=== PATIENT | female | born 1940 | race Caucasian/White ===

== ENCOUNTER → 2017-04-12 | Outpatient (CLI) | payer OTHER | LOC: M.WC 01:42 | DX: I87.312 Chronic venous hypertension (idiopathic) with ulcer of left lower extremity (principal); L97.821 Non-pressure chronic ulcer of other part of left lower leg limited to breakdown of skin; I73.89 Other specified peripheral vascular diseases; I48.91 Unspecified atrial fibrillation; M81.0 Age-related osteoporosis without current pathological fracture; Z87.891 Personal history of nicotine dependence ==

== ENCOUNTER → 2017-05-03 | Outpatient (CLI) | payer OTHER, SELFPAY | LOC: M.WC 01:38 | DX: I87.312 Chronic venous hypertension (idiopathic) with ulcer of left lower extremity (principal); L97.821 Non-pressure chronic ulcer of other part of left lower leg limited to breakdown of skin; I73.89 Other specified peripheral vascular diseases; I48.91 Unspecified atrial fibrillation; M81.0 Age-related osteoporosis without current pathological fracture; Z87.891 Personal history of nicotine dependence ==

== ENCOUNTER → 2017-05-10 | Outpatient (CLI) | payer OTHER, SELFPAY | LOC: M.WC 01:50 | DX: I87.312 Chronic venous hypertension (idiopathic) with ulcer of left lower extremity (principal); L97.821 Non-pressure chronic ulcer of other part of left lower leg limited to breakdown of skin; I73.89 Other specified peripheral vascular diseases; I48.91 Unspecified atrial fibrillation; M81.0 Age-related osteoporosis without current pathological fracture; Z87.891 Personal history of nicotine dependence ==

== ENCOUNTER → 2017-06-07 | Outpatient (CLI) | payer OTHER, SELFPAY | LOC: M.WC 05-31 00:55 | DX: L97.821 Non-pressure chronic ulcer of other part of left lower leg limited to breakdown of skin (principal); I87.312 Chronic venous hypertension (idiopathic) with ulcer of left lower extremity; L97.321 Non-pressure chronic ulcer of left ankle limited to breakdown of skin; I73.89 Other specified peripheral vascular diseases; I48.91 Unspecified atrial fibrillation; M81.0 Age-related osteoporosis without current pathological fracture; Z87.891 Personal history of nicotine dependence ==

== ENCOUNTER → 2017-06-14 | Outpatient (CLI) | payer OTHER, SELFPAY | LOC: M.WC 01:34 | DX: L97.821 Non-pressure chronic ulcer of other part of left lower leg limited to breakdown of skin (principal); L97.321 Non-pressure chronic ulcer of left ankle limited to breakdown of skin; I87.312 Chronic venous hypertension (idiopathic) with ulcer of left lower extremity; I73.89 Other specified peripheral vascular diseases; I48.91 Unspecified atrial fibrillation; M81.0 Age-related osteoporosis without current pathological fracture; Z87.891 Personal history of nicotine dependence ==

== ENCOUNTER → 2017-06-28 | Outpatient (CLI) | payer OTHER, SELFPAY | LOC: M.WC 06-21 01:50 | DX: I87.312 Chronic venous hypertension (idiopathic) with ulcer of left lower extremity (principal); L97.321 Non-pressure chronic ulcer of left ankle limited to breakdown of skin; I73.9 Peripheral vascular disease, unspecified; I48.91 Unspecified atrial fibrillation; Z87.891 Personal history of nicotine dependence ==

== ENCOUNTER → 2017-07-05 | Outpatient (CLI) | payer OTHER, SELFPAY | LOC: M.WC 01:30 | DX: I87.312 Chronic venous hypertension (idiopathic) with ulcer of left lower extremity (principal); L97.321 Non-pressure chronic ulcer of left ankle limited to breakdown of skin; I73.89 Other specified peripheral vascular diseases; I48.91 Unspecified atrial fibrillation; Z87.891 Personal history of nicotine dependence ==

== ENCOUNTER → 2017-07-12 | Outpatient (CLI) | payer OTHER, SELFPAY | LOC: M.WC 02:10 | DX: I87.312 Chronic venous hypertension (idiopathic) with ulcer of left lower extremity (principal); L97.321 Non-pressure chronic ulcer of left ankle limited to breakdown of skin; I73.9 Peripheral vascular disease, unspecified; I48.91 Unspecified atrial fibrillation; Z87.891 Personal history of nicotine dependence ==

== ENCOUNTER → 2017-07-26 | Outpatient (CLI) | payer OTHER, SELFPAY | LOC: M.WC 07-19 10:00 | DX: I87.312 Chronic venous hypertension (idiopathic) with ulcer of left lower extremity (principal); L97.321 Non-pressure chronic ulcer of left ankle limited to breakdown of skin; I73.9 Peripheral vascular disease, unspecified; I48.91 Unspecified atrial fibrillation; Z87.891 Personal history of nicotine dependence ==

== ENCOUNTER → 2017-08-09 | Outpatient (CLI) | payer OTHER, SELFPAY | LOC: M.WC 01:42 | DX: I87.312 Chronic venous hypertension (idiopathic) with ulcer of left lower extremity (principal); L97.821 Non-pressure chronic ulcer of other part of left lower leg limited to breakdown of skin; L97.321 Non-pressure chronic ulcer of left ankle limited to breakdown of skin; I48.91 Unspecified atrial fibrillation; I73.89 Other specified peripheral vascular diseases; M81.0 Age-related osteoporosis without current pathological fracture; Z87.891 Personal history of nicotine dependence ==

== ENCOUNTER → 2017-08-30 | Outpatient (CLI) | payer OTHER, SELFPAY | LOC: M.WC 01:53 | DX: I87.312 Chronic venous hypertension (idiopathic) with ulcer of left lower extremity (principal); L97.822 Non-pressure chronic ulcer of other part of left lower leg with fat layer exposed; L97.322 Non-pressure chronic ulcer of left ankle with fat layer exposed; I73.89 Other specified peripheral vascular diseases; I48.91 Unspecified atrial fibrillation; M81.0 Age-related osteoporosis without current pathological fracture; Z87.891 Personal history of nicotine dependence ==

== ENCOUNTER → 2017-09-20 | Outpatient (CLI) | payer OTHER, SELFPAY | LOC: M.WC 02:32 | DX: I87.312 Chronic venous hypertension (idiopathic) with ulcer of left lower extremity (principal); L97.822 Non-pressure chronic ulcer of other part of left lower leg with fat layer exposed; L97.321 Non-pressure chronic ulcer of left ankle limited to breakdown of skin; I73.89 Other specified peripheral vascular diseases; I48.91 Unspecified atrial fibrillation; M81.0 Age-related osteoporosis without current pathological fracture; Z87.891 Personal history of nicotine dependence ==

== ENCOUNTER → 2017-10-11 | Outpatient (CLI) | payer OTHER, SELFPAY | LOC: M.WC 03:48 | DX: I87.313 Chronic venous hypertension (idiopathic) with ulcer of bilateral lower extremity (principal); L97.821 Non-pressure chronic ulcer of other part of left lower leg limited to breakdown of skin; L97.311 Non-pressure chronic ulcer of right ankle limited to breakdown of skin; I73.89 Other specified peripheral vascular diseases; L03.116 Cellulitis of left lower limb; I48.91 Unspecified atrial fibrillation; M81.0 Age-related osteoporosis without current pathological fracture; Z87.891 Personal history of nicotine dependence ==

== ENCOUNTER → 2017-11-01 | Outpatient (CLI) | payer OTHER, SELFPAY | LOC: M.WC 03:52 | DX: I87.312 Chronic venous hypertension (idiopathic) with ulcer of left lower extremity (principal); L97.822 Non-pressure chronic ulcer of other part of left lower leg with fat layer exposed; L97.321 Non-pressure chronic ulcer of left ankle limited to breakdown of skin; I73.89 Other specified peripheral vascular diseases; L84 Corns and callosities; I48.91 Unspecified atrial fibrillation; M81.0 Age-related osteoporosis without current pathological fracture; Z87.891 Personal history of nicotine dependence ==

== ENCOUNTER → 2017-11-29 | Outpatient (CLI) | payer OTHER, SELFPAY | LOC: M.WC 11-22 01:22 | DX: I87.313 Chronic venous hypertension (idiopathic) with ulcer of bilateral lower extremity (principal); L97.821 Non-pressure chronic ulcer of other part of left lower leg limited to breakdown of skin; L97.321 Non-pressure chronic ulcer of left ankle limited to breakdown of skin; L97.311 Non-pressure chronic ulcer of right ankle limited to breakdown of skin; L03.116 Cellulitis of left lower limb; I73.89 Other specified peripheral vascular diseases; I48.91 Unspecified atrial fibrillation; M81.0 Age-related osteoporosis without current pathological fracture; Z87.891 Personal history of nicotine dependence ==

== ENCOUNTER → 2017-12-13 | Outpatient (CLI) | payer OTHER, SELFPAY | LOC: M.WC 02:02 | DX: I87.312 Chronic venous hypertension (idiopathic) with ulcer of left lower extremity (principal); L97.321 Non-pressure chronic ulcer of left ankle limited to breakdown of skin; I87.311 Chronic venous hypertension (idiopathic) with ulcer of right lower extremity; L97.311 Non-pressure chronic ulcer of right ankle limited to breakdown of skin; L97.822 Non-pressure chronic ulcer of other part of left lower leg with fat layer exposed; I73.89 Other specified peripheral vascular diseases; I48.91 Unspecified atrial fibrillation; M81.0 Age-related osteoporosis without current pathological fracture; Z87.891 Personal history of nicotine dependence ==

== ENCOUNTER → 2017-12-27 | Outpatient (CLI) | payer OTHER, SELFPAY | LOC: M.WC 02:55 | DX: I87.313 Chronic venous hypertension (idiopathic) with ulcer of bilateral lower extremity (principal); L97.322 Non-pressure chronic ulcer of left ankle with fat layer exposed; L97.311 Non-pressure chronic ulcer of right ankle limited to breakdown of skin; L97.821 Non-pressure chronic ulcer of other part of left lower leg limited to breakdown of skin; I48.91 Unspecified atrial fibrillation; M81.0 Age-related osteoporosis without current pathological fracture; I73.89 Other specified peripheral vascular diseases; Z87.891 Personal history of nicotine dependence ==

== ENCOUNTER → 2018-01-10 | Outpatient (CLI) | payer OTHER, SELFPAY | LOC: M.WC 04:59 | DX: I87.313 Chronic venous hypertension (idiopathic) with ulcer of bilateral lower extremity (principal); L97.821 Non-pressure chronic ulcer of other part of left lower leg limited to breakdown of skin; L97.321 Non-pressure chronic ulcer of left ankle limited to breakdown of skin; L97.311 Non-pressure chronic ulcer of right ankle limited to breakdown of skin; L03.116 Cellulitis of left lower limb; I73.89 Other specified peripheral vascular diseases; I10 Essential (primary) hypertension; I48.91 Unspecified atrial fibrillation; M81.0 Age-related osteoporosis without current pathological fracture; Z87.891 Personal history of nicotine dependence ==

== ENCOUNTER → 2018-02-07 | Outpatient (CLI) | payer OTHER, SELFPAY | LOC: M.WC 01-24 10:00 | DX: I87.313 Chronic venous hypertension (idiopathic) with ulcer of bilateral lower extremity (principal); L97.822 Non-pressure chronic ulcer of other part of left lower leg with fat layer exposed; L97.321 Non-pressure chronic ulcer of left ankle limited to breakdown of skin; L97.311 Non-pressure chronic ulcer of right ankle limited to breakdown of skin; I73.89 Other specified peripheral vascular diseases; I48.91 Unspecified atrial fibrillation; M81.0 Age-related osteoporosis without current pathological fracture; Z87.891 Personal history of nicotine dependence ==

== ENCOUNTER → 2018-02-28 | Outpatient (CLI) | payer OTHER, SELFPAY | LOC: M.WC 02-21 00:39 | DX: I87.313 Chronic venous hypertension (idiopathic) with ulcer of bilateral lower extremity (principal); L97.822 Non-pressure chronic ulcer of other part of left lower leg with fat layer exposed; L97.311 Non-pressure chronic ulcer of right ankle limited to breakdown of skin; L97.322 Non-pressure chronic ulcer of left ankle with fat layer exposed; L95.0 Livedoid vasculitis; L84 Corns and callosities; I10 Essential (primary) hypertension; I48.91 Unspecified atrial fibrillation; I73.89 Other specified peripheral vascular diseases; M81.0 Age-related osteoporosis without current pathological fracture; Z87.891 Personal history of nicotine dependence ==

== ENCOUNTER → 2018-03-14 | Outpatient (CLI) | payer OTHER, SELFPAY | LOC: M.WC 04:35 | DX: I87.313 Chronic venous hypertension (idiopathic) with ulcer of bilateral lower extremity (principal); L97.822 Non-pressure chronic ulcer of other part of left lower leg with fat layer exposed; L97.312 Non-pressure chronic ulcer of right ankle with fat layer exposed; L95.0 Livedoid vasculitis; I48.91 Unspecified atrial fibrillation; I73.89 Other specified peripheral vascular diseases; M81.0 Age-related osteoporosis without current pathological fracture; Z87.891 Personal history of nicotine dependence ==

== ENCOUNTER → 2018-04-18 | Outpatient (CLI) | payer OTHER, SELFPAY | LOC: M.WC 10:00 | DX: I87.313 Chronic venous hypertension (idiopathic) with ulcer of bilateral lower extremity (principal); L97.811 Non-pressure chronic ulcer of other part of right lower leg limited to breakdown of skin; L97.311 Non-pressure chronic ulcer of right ankle limited to breakdown of skin; L97.822 Non-pressure chronic ulcer of other part of left lower leg with fat layer exposed; L84 Corns and callosities; I48.91 Unspecified atrial fibrillation; I73.89 Other specified peripheral vascular diseases; M81.0 Age-related osteoporosis without current pathological fracture; Z87.891 Personal history of nicotine dependence ==

== ENCOUNTER → 2018-05-09 | Outpatient (CLI) | payer OTHER, SELFPAY | LOC: M.WC 04:36 | DX: I87.313 Chronic venous hypertension (idiopathic) with ulcer of bilateral lower extremity (principal); L97.822 Non-pressure chronic ulcer of other part of left lower leg with fat layer exposed; L97.312 Non-pressure chronic ulcer of right ankle with fat layer exposed; I73.89 Other specified peripheral vascular diseases; I48.91 Unspecified atrial fibrillation; G62.9 Polyneuropathy, unspecified; M81.0 Age-related osteoporosis without current pathological fracture; Z87.891 Personal history of nicotine dependence ==

== ENCOUNTER → 2018-05-30 | Outpatient (CLI) | payer OTHER, SELFPAY | LOC: M.WC 05:01 | DX: I83.028 Varicose veins of left lower extremity with ulcer other part of lower leg (principal); L97.822 Non-pressure chronic ulcer of other part of left lower leg with fat layer exposed; I48.91 Unspecified atrial fibrillation; I73.89 Other specified peripheral vascular diseases; L84 Corns and callosities; M81.0 Age-related osteoporosis without current pathological fracture; Z87.891 Personal history of nicotine dependence ==

== ENCOUNTER → 2018-06-27 | Outpatient (CLI) | payer OTHER, SELFPAY | LOC: M.WC 06-20 05:04 | DX: I87.312 Chronic venous hypertension (idiopathic) with ulcer of left lower extremity (principal); L97.822 Non-pressure chronic ulcer of other part of left lower leg with fat layer exposed; I73.89 Other specified peripheral vascular diseases; I10 Essential (primary) hypertension; I48.91 Unspecified atrial fibrillation; M81.0 Age-related osteoporosis without current pathological fracture; Z87.891 Personal history of nicotine dependence ==

== ENCOUNTER → 2018-07-25 | Outpatient (CLI) | payer OTHER, SELFPAY | LOC: M.WC 07-18 05:03 | DX: I83.023 Varicose veins of left lower extremity with ulcer of ankle (principal); L97.322 Non-pressure chronic ulcer of left ankle with fat layer exposed; L84 Corns and callosities; I73.89 Other specified peripheral vascular diseases; I10 Essential (primary) hypertension; I48.91 Unspecified atrial fibrillation; M81.0 Age-related osteoporosis without current pathological fracture; Z87.891 Personal history of nicotine dependence ==

== ENCOUNTER → 2018-08-22 | Outpatient (CLI) | payer OTHER | LOC: M.WC 08-15 05:00 | DX: I87.312 Chronic venous hypertension (idiopathic) with ulcer of left lower extremity (principal); L97.822 Non-pressure chronic ulcer of other part of left lower leg with fat layer exposed; I73.89 Other specified peripheral vascular diseases; I48.91 Unspecified atrial fibrillation; M81.0 Age-related osteoporosis without current pathological fracture; Z87.891 Personal history of nicotine dependence ==

== ENCOUNTER → 2018-08-28 | Outpatient (CLI) | payer OTHER | LOC: M.WC 04:55 | DX: I83.023 Varicose veins of left lower extremity with ulcer of ankle (principal); L97.322 Non-pressure chronic ulcer of left ankle with fat layer exposed; I48.91 Unspecified atrial fibrillation; I73.89 Other specified peripheral vascular diseases; M81.0 Age-related osteoporosis without current pathological fracture; Z87.891 Personal history of nicotine dependence ==

== ENCOUNTER → 2018-09-04 | Outpatient (CLI) | payer OTHER | LOC: M.WC 02:34 | DX: I87.312 Chronic venous hypertension (idiopathic) with ulcer of left lower extremity (principal); L97.822 Non-pressure chronic ulcer of other part of left lower leg with fat layer exposed; I73.89 Other specified peripheral vascular diseases; I48.91 Unspecified atrial fibrillation; M81.0 Age-related osteoporosis without current pathological fracture; Z87.891 Personal history of nicotine dependence ==

== ENCOUNTER → 2018-09-11 | Outpatient (CLI) | payer OTHER | LOC: M.WC 04:43 | DX: I83.023 Varicose veins of left lower extremity with ulcer of ankle (principal); L97.322 Non-pressure chronic ulcer of left ankle with fat layer exposed; L84 Corns and callosities; I73.89 Other specified peripheral vascular diseases; I48.91 Unspecified atrial fibrillation; M81.0 Age-related osteoporosis without current pathological fracture; Z87.891 Personal history of nicotine dependence ==

== ENCOUNTER → 2018-09-19 | Outpatient (CLI) | payer OTHER | LOC: M.WC 09-18 05:21 | DX: I83.028 Varicose veins of left lower extremity with ulcer other part of lower leg (principal); L97.822 Non-pressure chronic ulcer of other part of left lower leg with fat layer exposed; L84 Corns and callosities; I73.89 Other specified peripheral vascular diseases; I48.91 Unspecified atrial fibrillation; M81.0 Age-related osteoporosis without current pathological fracture; Z87.891 Personal history of nicotine dependence ==

== ENCOUNTER → 2018-09-25 | Outpatient (CLI) | payer OTHER | LOC: M.WC 05:01 | DX: I87.312 Chronic venous hypertension (idiopathic) with ulcer of left lower extremity (principal); L97.322 Non-pressure chronic ulcer of left ankle with fat layer exposed; I10 Essential (primary) hypertension; I48.91 Unspecified atrial fibrillation; I73.89 Other specified peripheral vascular diseases; M81.0 Age-related osteoporosis without current pathological fracture; Z87.891 Personal history of nicotine dependence ==

== ENCOUNTER → 2018-10-02 | Outpatient (CLI) | payer OTHER | LOC: M.WC 00:32 | DX: I83.013 Varicose veins of right lower extremity with ulcer of ankle (principal); L97.322 Non-pressure chronic ulcer of left ankle with fat layer exposed; I48.91 Unspecified atrial fibrillation; I73.89 Other specified peripheral vascular diseases; M81.0 Age-related osteoporosis without current pathological fracture; Z87.891 Personal history of nicotine dependence ==

== ENCOUNTER → 2018-10-09 | Outpatient (CLI) | payer OTHER | LOC: M.WC 05:03 | DX: I83.023 Varicose veins of left lower extremity with ulcer of ankle (principal); L97.822 Non-pressure chronic ulcer of other part of left lower leg with fat layer exposed; L84 Corns and callosities; I48.91 Unspecified atrial fibrillation; I73.89 Other specified peripheral vascular diseases; M81.0 Age-related osteoporosis without current pathological fracture; Z87.891 Personal history of nicotine dependence ==

== ENCOUNTER → 2018-10-30 | Outpatient (CLI) | payer OTHER | LOC: M.WC 10-23 05:17 | DX: I83.023 Varicose veins of left lower extremity with ulcer of ankle (principal); L97.322 Non-pressure chronic ulcer of left ankle with fat layer exposed; I73.89 Other specified peripheral vascular diseases; I10 Essential (primary) hypertension; I48.91 Unspecified atrial fibrillation; M81.0 Age-related osteoporosis without current pathological fracture; Z87.891 Personal history of nicotine dependence ==

== ENCOUNTER → 2018-11-07 | Outpatient (CLI) | payer OTHER | LOC: M.WC 05:27 | DX: I83.028 Varicose veins of left lower extremity with ulcer other part of lower leg (principal); L97.822 Non-pressure chronic ulcer of other part of left lower leg with fat layer exposed; I48.91 Unspecified atrial fibrillation; I73.89 Other specified peripheral vascular diseases; M81.0 Age-related osteoporosis without current pathological fracture; Z87.891 Personal history of nicotine dependence ==

== ENCOUNTER → 2018-11-14 | Outpatient (CLI) | payer OTHER | LOC: M.WC 05:38 | DX: I83.028 Varicose veins of left lower extremity with ulcer other part of lower leg (principal); L97.822 Non-pressure chronic ulcer of other part of left lower leg with fat layer exposed; I48.91 Unspecified atrial fibrillation; I73.89 Other specified peripheral vascular diseases; M81.0 Age-related osteoporosis without current pathological fracture; Z87.891 Personal history of nicotine dependence ==

== ENCOUNTER → 2018-11-27 | Outpatient (CLI) | payer OTHER | LOC: M.WC 11-21 05:09 | DX: I83.028 Varicose veins of left lower extremity with ulcer other part of lower leg (principal); L97.822 Non-pressure chronic ulcer of other part of left lower leg with fat layer exposed; I48.91 Unspecified atrial fibrillation; I73.89 Other specified peripheral vascular diseases; M81.0 Age-related osteoporosis without current pathological fracture; Z87.891 Personal history of nicotine dependence ==

== ENCOUNTER → 2018-12-11 | Outpatient (CLI) | payer OTHER | LOC: M.WC 05:19 | DX: I83.028 Varicose veins of left lower extremity with ulcer other part of lower leg (principal); L97.821 Non-pressure chronic ulcer of other part of left lower leg limited to breakdown of skin; I48.91 Unspecified atrial fibrillation; I73.89 Other specified peripheral vascular diseases; M81.0 Age-related osteoporosis without current pathological fracture; Z87.891 Personal history of nicotine dependence ==

== ENCOUNTER → 2018-12-18 | Outpatient (CLI) | payer OTHER | LOC: M.WC 05:09 | DX: I87.312 Chronic venous hypertension (idiopathic) with ulcer of left lower extremity (principal); L97.821 Non-pressure chronic ulcer of other part of left lower leg limited to breakdown of skin; I73.89 Other specified peripheral vascular diseases; L03.116 Cellulitis of left lower limb; I48.91 Unspecified atrial fibrillation; M81.0 Age-related osteoporosis without current pathological fracture; Z87.891 Personal history of nicotine dependence ==

== ENCOUNTER → 2018-12-25 | Outpatient (CLI) | payer OTHER | LOC: M.WC 05:29 | DX: I83.028 Varicose veins of left lower extremity with ulcer other part of lower leg (principal); L97.821 Non-pressure chronic ulcer of other part of left lower leg limited to breakdown of skin; L03.116 Cellulitis of left lower limb; I73.89 Other specified peripheral vascular diseases; I48.91 Unspecified atrial fibrillation; M81.0 Age-related osteoporosis without current pathological fracture; Z87.891 Personal history of nicotine dependence ==

== ENCOUNTER → 2019-01-01 | Outpatient (CLI) | payer OTHER | LOC: M.WC 04:57 | DX: I83.028 Varicose veins of left lower extremity with ulcer other part of lower leg (principal); L97.821 Non-pressure chronic ulcer of other part of left lower leg limited to breakdown of skin; I48.91 Unspecified atrial fibrillation; I73.89 Other specified peripheral vascular diseases; M81.0 Age-related osteoporosis without current pathological fracture; Z87.891 Personal history of nicotine dependence ==

== ENCOUNTER → 2019-01-08 | Outpatient (CLI) | payer OTHER | LOC: M.WC 04:47 | DX: I87.312 Chronic venous hypertension (idiopathic) with ulcer of left lower extremity (principal); L97.822 Non-pressure chronic ulcer of other part of left lower leg with fat layer exposed; I73.89 Other specified peripheral vascular diseases; L03.116 Cellulitis of left lower limb; M81.0 Age-related osteoporosis without current pathological fracture; Z87.891 Personal history of nicotine dependence ==

== ENCOUNTER → 2019-01-15 | Outpatient (CLI) | payer OTHER, SELFPAY | LOC: M.WC 05:28 | DX: I83.028 Varicose veins of left lower extremity with ulcer other part of lower leg (principal); L97.821 Non-pressure chronic ulcer of other part of left lower leg limited to breakdown of skin; L03.116 Cellulitis of left lower limb; I73.89 Other specified peripheral vascular diseases; I48.91 Unspecified atrial fibrillation; M81.0 Age-related osteoporosis without current pathological fracture; Z87.891 Personal history of nicotine dependence ==

== ENCOUNTER → 2019-01-23 | Outpatient (CLI) | payer OTHER, SELFPAY | LOC: M.WC 01-22 10:00 | DX: I87.312 Chronic venous hypertension (idiopathic) with ulcer of left lower extremity (principal); L97.821 Non-pressure chronic ulcer of other part of left lower leg limited to breakdown of skin; L03.116 Cellulitis of left lower limb; I73.89 Other specified peripheral vascular diseases; I48.91 Unspecified atrial fibrillation; M81.0 Age-related osteoporosis without current pathological fracture; Z87.891 Personal history of nicotine dependence ==

== ENCOUNTER → 2019-01-29 | Outpatient (CLI) | payer OTHER, SELFPAY | LOC: M.WC 04:34 | DX: I87.312 Chronic venous hypertension (idiopathic) with ulcer of left lower extremity (principal); L97.822 Non-pressure chronic ulcer of other part of left lower leg with fat layer exposed; I73.89 Other specified peripheral vascular diseases; L03.116 Cellulitis of left lower limb; I48.91 Unspecified atrial fibrillation; M81.0 Age-related osteoporosis without current pathological fracture; Z87.891 Personal history of nicotine dependence ==

== ENCOUNTER → 2019-02-05 | Outpatient (CLI) | payer OTHER, SELFPAY | LOC: M.WC 00:47 | DX: I83.028 Varicose veins of left lower extremity with ulcer other part of lower leg (principal); L97.821 Non-pressure chronic ulcer of other part of left lower leg limited to breakdown of skin; L03.116 Cellulitis of left lower limb; I73.89 Other specified peripheral vascular diseases; I48.91 Unspecified atrial fibrillation; M81.0 Age-related osteoporosis without current pathological fracture; Z87.891 Personal history of nicotine dependence ==

== ENCOUNTER → 2019-02-09 | Outpatient (CLI) | payer OTHER, SELFPAY | LOC: M.WC 01:11 | DX: I83.028 Varicose veins of left lower extremity with ulcer other part of lower leg (principal); L97.821 Non-pressure chronic ulcer of other part of left lower leg limited to breakdown of skin; L03.116 Cellulitis of left lower limb; I73.89 Other specified peripheral vascular diseases; I48.91 Unspecified atrial fibrillation; M81.0 Age-related osteoporosis without current pathological fracture; Z87.891 Personal history of nicotine dependence ==

== ENCOUNTER → 2019-02-13 | Outpatient (CLI) | payer OTHER, SELFPAY | LOC: M.WC 01:47 | DX: I83.028 Varicose veins of left lower extremity with ulcer other part of lower leg (principal); L97.822 Non-pressure chronic ulcer of other part of left lower leg with fat layer exposed; L03.116 Cellulitis of left lower limb; I10 Essential (primary) hypertension; I48.91 Unspecified atrial fibrillation; I73.89 Other specified peripheral vascular diseases; M81.0 Age-related osteoporosis without current pathological fracture; Z87.891 Personal history of nicotine dependence ==

== ENCOUNTER → 2019-02-16 | Outpatient (CLI) | payer OTHER, SELFPAY | LOC: M.WC 02:37 | DX: I83.028 Varicose veins of left lower extremity with ulcer other part of lower leg (principal); L97.821 Non-pressure chronic ulcer of other part of left lower leg limited to breakdown of skin; L03.116 Cellulitis of left lower limb; I73.89 Other specified peripheral vascular diseases; I10 Essential (primary) hypertension; I48.91 Unspecified atrial fibrillation; M81.0 Age-related osteoporosis without current pathological fracture; Z87.891 Personal history of nicotine dependence ==

== ENCOUNTER → 2019-02-27 | Outpatient (CLI) | payer OTHER, SELFPAY | LOC: M.WC 04:57 | DX: I83.028 Varicose veins of left lower extremity with ulcer other part of lower leg (principal); L97.322 Non-pressure chronic ulcer of left ankle with fat layer exposed; L97.822 Non-pressure chronic ulcer of other part of left lower leg with fat layer exposed; L03.116 Cellulitis of left lower limb; I48.91 Unspecified atrial fibrillation; I73.89 Other specified peripheral vascular diseases; M81.0 Age-related osteoporosis without current pathological fracture; Z87.891 Personal history of nicotine dependence ==

== ENCOUNTER → 2019-03-02 | Outpatient (CLI) | payer OTHER, SELFPAY | LOC: M.WC 01:50 | DX: I83.028 Varicose veins of left lower extremity with ulcer other part of lower leg (principal); L97.321 Non-pressure chronic ulcer of left ankle limited to breakdown of skin; L03.116 Cellulitis of left lower limb; I48.91 Unspecified atrial fibrillation; I73.89 Other specified peripheral vascular diseases; M81.0 Age-related osteoporosis without current pathological fracture; Z87.891 Personal history of nicotine dependence ==

== ENCOUNTER → 2019-03-05 | Outpatient (CLI) | payer OTHER | LOC: M.WC 05:03 | DX: I87.312 Chronic venous hypertension (idiopathic) with ulcer of left lower extremity (principal); L97.822 Non-pressure chronic ulcer of other part of left lower leg with fat layer exposed; L03.116 Cellulitis of left lower limb; L84 Corns and callosities; I73.89 Other specified peripheral vascular diseases; I48.91 Unspecified atrial fibrillation; M81.0 Age-related osteoporosis without current pathological fracture; Z87.891 Personal history of nicotine dependence ==

== ENCOUNTER → 2019-03-11 | Outpatient (CLI) | payer OTHER, SELFPAY | LOC: M.WC 05:45 | DX: I87.312 Chronic venous hypertension (idiopathic) with ulcer of left lower extremity (principal); L97.822 Non-pressure chronic ulcer of other part of left lower leg with fat layer exposed; L84 Corns and callosities; L03.116 Cellulitis of left lower limb; I48.91 Unspecified atrial fibrillation; I73.89 Other specified peripheral vascular diseases; M81.0 Age-related osteoporosis without current pathological fracture; Z87.891 Personal history of nicotine dependence ==

== ENCOUNTER → 2019-03-16 | Outpatient (CLI) | payer OTHER, SELFPAY | LOC: M.WC 01:34 | DX: I83.028 Varicose veins of left lower extremity with ulcer other part of lower leg (principal); L97.821 Non-pressure chronic ulcer of other part of left lower leg limited to breakdown of skin; L03.116 Cellulitis of left lower limb; I10 Essential (primary) hypertension; I48.91 Unspecified atrial fibrillation; I73.89 Other specified peripheral vascular diseases; M81.0 Age-related osteoporosis without current pathological fracture; Z87.891 Personal history of nicotine dependence ==

== ENCOUNTER → 2019-03-19 | Outpatient (CLI) | payer OTHER, SELFPAY | LOC: M.WC 05:03 | DX: I83.028 Varicose veins of left lower extremity with ulcer other part of lower leg (principal); L97.822 Non-pressure chronic ulcer of other part of left lower leg with fat layer exposed; L03.116 Cellulitis of left lower limb; I73.89 Other specified peripheral vascular diseases; I10 Essential (primary) hypertension; I48.91 Unspecified atrial fibrillation; M81.0 Age-related osteoporosis without current pathological fracture; Z87.891 Personal history of nicotine dependence ==

== ENCOUNTER → 2019-03-23 | Outpatient (CLI) | payer OTHER, SELFPAY | LOC: M.WC 01:31 | DX: I83.028 Varicose veins of left lower extremity with ulcer other part of lower leg (principal); L97.821 Non-pressure chronic ulcer of other part of left lower leg limited to breakdown of skin; L03.116 Cellulitis of left lower limb; I10 Essential (primary) hypertension; I48.91 Unspecified atrial fibrillation; I73.89 Other specified peripheral vascular diseases; M81.0 Age-related osteoporosis without current pathological fracture; Z87.891 Personal history of nicotine dependence ==

== ENCOUNTER → 2019-03-26 | Outpatient (CLI) | payer OTHER, SELFPAY | LOC: M.WC 05:28 | DX: I87.312 Chronic venous hypertension (idiopathic) with ulcer of left lower extremity (principal); L97.822 Non-pressure chronic ulcer of other part of left lower leg with fat layer exposed; L97.321 Non-pressure chronic ulcer of left ankle limited to breakdown of skin; I73.89 Other specified peripheral vascular diseases; L03.116 Cellulitis of left lower limb; I48.91 Unspecified atrial fibrillation; M81.0 Age-related osteoporosis without current pathological fracture; Z87.891 Personal history of nicotine dependence ==

== ENCOUNTER → 2019-04-02 | Outpatient (CLI) | payer OTHER, SELFPAY | LOC: M.WC 04:53 | DX: I83.028 Varicose veins of left lower extremity with ulcer other part of lower leg (principal); L97.822 Non-pressure chronic ulcer of other part of left lower leg with fat layer exposed; L03.116 Cellulitis of left lower limb; I73.89 Other specified peripheral vascular diseases; I48.91 Unspecified atrial fibrillation; M81.0 Age-related osteoporosis without current pathological fracture; Z87.891 Personal history of nicotine dependence ==

== ENCOUNTER → 2019-04-06 | Outpatient (CLI) | payer OTHER, SELFPAY | LOC: M.WC 03:05 | DX: I83.028 Varicose veins of left lower extremity with ulcer other part of lower leg (principal); L97.821 Non-pressure chronic ulcer of other part of left lower leg limited to breakdown of skin; L03.116 Cellulitis of left lower limb; I73.89 Other specified peripheral vascular diseases; I48.91 Unspecified atrial fibrillation; M81.0 Age-related osteoporosis without current pathological fracture; Z87.891 Personal history of nicotine dependence ==

== ENCOUNTER → 2019-04-09 | Outpatient (CLI) | payer OTHER, SELFPAY | LOC: M.WC 01:52 | DX: I83.028 Varicose veins of left lower extremity with ulcer other part of lower leg (principal); L97.822 Non-pressure chronic ulcer of other part of left lower leg with fat layer exposed; L03.116 Cellulitis of left lower limb; I73.89 Other specified peripheral vascular diseases; I48.91 Unspecified atrial fibrillation; M81.0 Age-related osteoporosis without current pathological fracture; Z87.891 Personal history of nicotine dependence ==

== ENCOUNTER → 2019-04-13 | Outpatient (CLI) | payer OTHER, SELFPAY | LOC: M.WC 04:49 | DX: I83.028 Varicose veins of left lower extremity with ulcer other part of lower leg (principal); L97.821 Non-pressure chronic ulcer of other part of left lower leg limited to breakdown of skin; L03.116 Cellulitis of left lower limb; I73.89 Other specified peripheral vascular diseases; I48.91 Unspecified atrial fibrillation; M81.0 Age-related osteoporosis without current pathological fracture; Z87.891 Personal history of nicotine dependence ==

== ENCOUNTER → 2019-04-20 | Outpatient (CLI) | payer OTHER, SELFPAY | LOC: M.WC 01:25 | DX: I83.028 Varicose veins of left lower extremity with ulcer other part of lower leg (principal); L97.321 Non-pressure chronic ulcer of left ankle limited to breakdown of skin; L97.821 Non-pressure chronic ulcer of other part of left lower leg limited to breakdown of skin; L03.116 Cellulitis of left lower limb; I87.2 Venous insufficiency (chronic) (peripheral); I73.89 Other specified peripheral vascular diseases; I10 Essential (primary) hypertension; I48.91 Unspecified atrial fibrillation; M81.0 Age-related osteoporosis without current pathological fracture; Z87.891 Personal history of nicotine dependence ==

== ENCOUNTER → 2019-04-23 | Outpatient (CLI) | payer OTHER, SELFPAY | LOC: M.WC 04:06 | DX: I83.028 Varicose veins of left lower extremity with ulcer other part of lower leg (principal); L97.822 Non-pressure chronic ulcer of other part of left lower leg with fat layer exposed; L03.116 Cellulitis of left lower limb; L84 Corns and callosities; I10 Essential (primary) hypertension; I73.89 Other specified peripheral vascular diseases; I48.91 Unspecified atrial fibrillation; M81.0 Age-related osteoporosis without current pathological fracture; Z87.891 Personal history of nicotine dependence ==

== ENCOUNTER → 2019-04-30 | Outpatient (CLI) | payer OTHER, SELFPAY | LOC: M.WC 01:52 | DX: I83.028 Varicose veins of left lower extremity with ulcer other part of lower leg (principal); L97.822 Non-pressure chronic ulcer of other part of left lower leg with fat layer exposed; L03.116 Cellulitis of left lower limb; I48.91 Unspecified atrial fibrillation; I73.89 Other specified peripheral vascular diseases; M81.0 Age-related osteoporosis without current pathological fracture; Z87.891 Personal history of nicotine dependence ==

== ENCOUNTER → 2019-05-05 | Outpatient (CLI) | payer OTHER, SELFPAY | LOC: M.WC 05:13 | DX: I83.028 Varicose veins of left lower extremity with ulcer other part of lower leg (principal); L97.821 Non-pressure chronic ulcer of other part of left lower leg limited to breakdown of skin; L03.116 Cellulitis of left lower limb; L84 Corns and callosities; I73.89 Other specified peripheral vascular diseases; I10 Essential (primary) hypertension; I48.91 Unspecified atrial fibrillation; M81.0 Age-related osteoporosis without current pathological fracture; Z87.891 Personal history of nicotine dependence ==

== ENCOUNTER → 2019-05-11 | Outpatient (CLI) | payer OTHER, SELFPAY | LOC: M.WC 01:55 | DX: I83.028 Varicose veins of left lower extremity with ulcer other part of lower leg (principal); L97.821 Non-pressure chronic ulcer of other part of left lower leg limited to breakdown of skin; L03.116 Cellulitis of left lower limb; I73.89 Other specified peripheral vascular diseases; I10 Essential (primary) hypertension; I48.91 Unspecified atrial fibrillation; M81.0 Age-related osteoporosis without current pathological fracture; Z87.891 Personal history of nicotine dependence ==

== ENCOUNTER → 2019-05-14 | Outpatient (CLI) | payer OTHER, SELFPAY | LOC: M.WC 11:00 | DX: I83.028 Varicose veins of left lower extremity with ulcer other part of lower leg (principal); L97.821 Non-pressure chronic ulcer of other part of left lower leg limited to breakdown of skin; L03.116 Cellulitis of left lower limb; I73.89 Other specified peripheral vascular diseases; I48.91 Unspecified atrial fibrillation; M81.0 Age-related osteoporosis without current pathological fracture; Z87.891 Personal history of nicotine dependence ==

== ENCOUNTER → 2019-05-18 | Outpatient (CLI) | payer OTHER, SELFPAY | LOC: M.WC 02:22 | DX: I83.028 Varicose veins of left lower extremity with ulcer other part of lower leg (principal); L97.821 Non-pressure chronic ulcer of other part of left lower leg limited to breakdown of skin; L03.116 Cellulitis of left lower limb; I73.89 Other specified peripheral vascular diseases; I10 Essential (primary) hypertension; I48.91 Unspecified atrial fibrillation; M81.0 Age-related osteoporosis without current pathological fracture; Z87.891 Personal history of nicotine dependence ==

== ENCOUNTER → 2019-05-21 | Outpatient (CLI) | payer OTHER, SELFPAY | LOC: M.WC 04:36 | DX: I83.028 Varicose veins of left lower extremity with ulcer other part of lower leg (principal); L97.822 Non-pressure chronic ulcer of other part of left lower leg with fat layer exposed; L03.116 Cellulitis of left lower limb; L84 Corns and callosities; I73.89 Other specified peripheral vascular diseases; I10 Essential (primary) hypertension; I48.91 Unspecified atrial fibrillation; M81.0 Age-related osteoporosis without current pathological fracture; Z87.891 Personal history of nicotine dependence ==

== ENCOUNTER → 2019-05-29 | Outpatient (CLI) | payer OTHER, SELFPAY | LOC: M.WC 04:00 | DX: I83.028 Varicose veins of left lower extremity with ulcer other part of lower leg (principal); L97.321 Non-pressure chronic ulcer of left ankle limited to breakdown of skin; L03.116 Cellulitis of left lower limb; I73.89 Other specified peripheral vascular diseases; I10 Essential (primary) hypertension; I48.91 Unspecified atrial fibrillation; M81.0 Age-related osteoporosis without current pathological fracture; Z87.891 Personal history of nicotine dependence ==

== ENCOUNTER → 2019-06-05 | Outpatient (CLI) | payer OTHER, SELFPAY | LOC: M.WC 05-28 11:00 | DX: I83.028 Varicose veins of left lower extremity with ulcer other part of lower leg (principal); L97.822 Non-pressure chronic ulcer of other part of left lower leg with fat layer exposed; L03.116 Cellulitis of left lower limb; L84 Corns and callosities; I73.89 Other specified peripheral vascular diseases; I48.91 Unspecified atrial fibrillation; M81.0 Age-related osteoporosis without current pathological fracture; Z87.891 Personal history of nicotine dependence ==

== ENCOUNTER → 2019-06-08 | Outpatient (CLI) | payer OTHER, SELFPAY | LOC: M.WC 03:40 | DX: I83.028 Varicose veins of left lower extremity with ulcer other part of lower leg (principal); L97.821 Non-pressure chronic ulcer of other part of left lower leg limited to breakdown of skin; L03.116 Cellulitis of left lower limb; L84 Corns and callosities; I10 Essential (primary) hypertension; I48.91 Unspecified atrial fibrillation; I73.89 Other specified peripheral vascular diseases; M81.0 Age-related osteoporosis without current pathological fracture; Z87.891 Personal history of nicotine dependence ==

== ENCOUNTER → 2019-06-12 | Outpatient (CLI) | payer OTHER, SELFPAY | LOC: M.WC 04:05 | DX: I83.028 Varicose veins of left lower extremity with ulcer other part of lower leg (principal); L97.822 Non-pressure chronic ulcer of other part of left lower leg with fat layer exposed; L03.116 Cellulitis of left lower limb; L84 Corns and callosities; I73.89 Other specified peripheral vascular diseases; I10 Essential (primary) hypertension; I48.91 Unspecified atrial fibrillation; M81.0 Age-related osteoporosis without current pathological fracture; Z87.891 Personal history of nicotine dependence ==

== ENCOUNTER → 2019-06-19 | Outpatient (CLI) | payer OTHER, SELFPAY | LOC: M.WC 03:45 | DX: I83.028 Varicose veins of left lower extremity with ulcer other part of lower leg (principal); L97.822 Non-pressure chronic ulcer of other part of left lower leg with fat layer exposed; L03.116 Cellulitis of left lower limb; I10 Essential (primary) hypertension; I48.91 Unspecified atrial fibrillation; I73.89 Other specified peripheral vascular diseases; M81.0 Age-related osteoporosis without current pathological fracture; Z87.891 Personal history of nicotine dependence ==

== ENCOUNTER → 2019-06-26 | Outpatient (CLI) | payer OTHER, SELFPAY | LOC: M.WC 02:00 | DX: I83.028 Varicose veins of left lower extremity with ulcer other part of lower leg (principal); L97.822 Non-pressure chronic ulcer of other part of left lower leg with fat layer exposed; L03.116 Cellulitis of left lower limb; I73.89 Other specified peripheral vascular diseases; I10 Essential (primary) hypertension; I48.91 Unspecified atrial fibrillation; M81.0 Age-related osteoporosis without current pathological fracture; Z87.891 Personal history of nicotine dependence ==

== ENCOUNTER → 2019-07-03 | Outpatient (CLI) | payer OTHER, SELFPAY | LOC: M.WC 04:00 | DX: I83.028 Varicose veins of left lower extremity with ulcer other part of lower leg (principal); L97.822 Non-pressure chronic ulcer of other part of left lower leg with fat layer exposed; L84 Corns and callosities; L03.116 Cellulitis of left lower limb; I73.89 Other specified peripheral vascular diseases; I10 Essential (primary) hypertension; I48.91 Unspecified atrial fibrillation; M81.0 Age-related osteoporosis without current pathological fracture; Z87.891 Personal history of nicotine dependence ==

== ENCOUNTER → 2019-07-10 | Outpatient (CLI) | payer OTHER, SELFPAY | LOC: M.WC 02:30 | DX: I83.028 Varicose veins of left lower extremity with ulcer other part of lower leg (principal); L97.822 Non-pressure chronic ulcer of other part of left lower leg with fat layer exposed; L03.116 Cellulitis of left lower limb; I10 Essential (primary) hypertension; I48.91 Unspecified atrial fibrillation; I73.89 Other specified peripheral vascular diseases; M81.0 Age-related osteoporosis without current pathological fracture; Z87.891 Personal history of nicotine dependence ==

== ENCOUNTER → 2019-07-16 | Outpatient (CLI) | payer OTHER, SELFPAY | LOC: M.WC 01:40 | DX: I83.028 Varicose veins of left lower extremity with ulcer other part of lower leg (principal); L97.821 Non-pressure chronic ulcer of other part of left lower leg limited to breakdown of skin; L03.116 Cellulitis of left lower limb; I73.89 Other specified peripheral vascular diseases; I10 Essential (primary) hypertension; I48.91 Unspecified atrial fibrillation; M81.0 Age-related osteoporosis without current pathological fracture; Z87.891 Personal history of nicotine dependence ==

== ENCOUNTER → 2019-07-23 | Outpatient (CLI) | payer OTHER, SELFPAY | LOC: M.WC 04:56 | DX: I83.028 Varicose veins of left lower extremity with ulcer other part of lower leg (principal); L97.822 Non-pressure chronic ulcer of other part of left lower leg with fat layer exposed; L03.116 Cellulitis of left lower limb; I73.89 Other specified peripheral vascular diseases; I10 Essential (primary) hypertension; I48.91 Unspecified atrial fibrillation; M81.0 Age-related osteoporosis without current pathological fracture; Z87.891 Personal history of nicotine dependence ==

== ENCOUNTER → 2019-07-30 | Outpatient (CLI) | payer OTHER, SELFPAY | LOC: M.WC 05:11 | DX: I83.028 Varicose veins of left lower extremity with ulcer other part of lower leg (principal); L97.821 Non-pressure chronic ulcer of other part of left lower leg limited to breakdown of skin; L03.116 Cellulitis of left lower limb; L84 Corns and callosities; I73.89 Other specified peripheral vascular diseases; I48.91 Unspecified atrial fibrillation; M81.0 Age-related osteoporosis without current pathological fracture; Z87.891 Personal history of nicotine dependence ==

== ENCOUNTER → 2019-08-06 | Outpatient (CLI) | payer OTHER, SELFPAY | LOC: M.WC 05:40 | DX: I83.028 Varicose veins of left lower extremity with ulcer other part of lower leg (principal); L97.822 Non-pressure chronic ulcer of other part of left lower leg with fat layer exposed; L84 Corns and callosities; L03.116 Cellulitis of left lower limb; I73.89 Other specified peripheral vascular diseases; I10 Essential (primary) hypertension; I48.91 Unspecified atrial fibrillation; M81.0 Age-related osteoporosis without current pathological fracture; Z87.891 Personal history of nicotine dependence ==

== ENCOUNTER → 2019-08-13 | Outpatient (CLI) | payer OTHER, SELFPAY | LOC: M.WC 04:12 | DX: I83.028 Varicose veins of left lower extremity with ulcer other part of lower leg (principal); L97.821 Non-pressure chronic ulcer of other part of left lower leg limited to breakdown of skin; L03.116 Cellulitis of left lower limb; L84 Corns and callosities; I73.89 Other specified peripheral vascular diseases; I10 Essential (primary) hypertension; I48.91 Unspecified atrial fibrillation; M81.0 Age-related osteoporosis without current pathological fracture; Z87.891 Personal history of nicotine dependence ==

== ENCOUNTER → 2019-08-20 | Outpatient (CLI) | payer OTHER, SELFPAY | LOC: M.WC 01:47 | DX: E11.622 Type 2 diabetes mellitus with other skin ulcer (principal); I83.028 Varicose veins of left lower extremity with ulcer other part of lower leg; L97.822 Non-pressure chronic ulcer of other part of left lower leg with fat layer exposed; I83.023 Varicose veins of left lower extremity with ulcer of ankle; L97.322 Non-pressure chronic ulcer of left ankle with fat layer exposed; L03.116 Cellulitis of left lower limb; E11.51 Type 2 diabetes mellitus with diabetic peripheral angiopathy without gangrene; L84 Corns and callosities; I10 Essential (primary) hypertension; I87.2 Venous insufficiency (chronic) (peripheral); H35.30 Unspecified macular degeneration; I48.91 Unspecified atrial fibrillation; M81.0 Age-related osteoporosis without current pathological fracture; M87.88 Other osteonecrosis, other site; Z79.01 Long term (current) use of anticoagulants ==

== ENCOUNTER → 2019-08-27 | Outpatient (CLI) | payer OTHER, SELFPAY | LOC: M.WC 04:13 | DX: I87.312 Chronic venous hypertension (idiopathic) with ulcer of left lower extremity (principal); L97.821 Non-pressure chronic ulcer of other part of left lower leg limited to breakdown of skin; L03.116 Cellulitis of left lower limb; I73.89 Other specified peripheral vascular diseases; H35.30 Unspecified macular degeneration; I48.91 Unspecified atrial fibrillation; M81.0 Age-related osteoporosis without current pathological fracture; Z87.891 Personal history of nicotine dependence ==

== ENCOUNTER → 2019-09-03 | Outpatient (CLI) | payer OTHER, SELFPAY | LOC: M.WC 09-02 11:00 | DX: I83.028 Varicose veins of left lower extremity with ulcer other part of lower leg (principal); L97.822 Non-pressure chronic ulcer of other part of left lower leg with fat layer exposed; L03.116 Cellulitis of left lower limb; I73.89 Other specified peripheral vascular diseases; I10 Essential (primary) hypertension; I48.91 Unspecified atrial fibrillation; M81.0 Age-related osteoporosis without current pathological fracture; Z87.891 Personal history of nicotine dependence; L84 Corns and callosities ==

== ENCOUNTER → 2019-09-10 | Outpatient (CLI) | payer OTHER, SELFPAY | LOC: M.WC 04:27 | DX: I87.312 Chronic venous hypertension (idiopathic) with ulcer of left lower extremity (principal); L97.821 Non-pressure chronic ulcer of other part of left lower leg limited to breakdown of skin; L03.116 Cellulitis of left lower limb; I73.89 Other specified peripheral vascular diseases; L84 Corns and callosities; H35.30 Unspecified macular degeneration; I48.91 Unspecified atrial fibrillation; M81.0 Age-related osteoporosis without current pathological fracture; Z87.891 Personal history of nicotine dependence ==

== ENCOUNTER → 2019-09-17 | Outpatient (CLI) | payer OTHER, SELFPAY | LOC: M.WC 03:53 | PROVIDERS: ATTEND Family Medicine | DX: I83.023 Varicose veins of left lower extremity with ulcer of ankle (principal); L97.322 Non-pressure chronic ulcer of left ankle with fat layer exposed; L03.116 Cellulitis of left lower limb; L84 Corns and callosities; I73.89 Other specified peripheral vascular diseases; I10 Essential (primary) hypertension; I48.91 Unspecified atrial fibrillation; M81.0 Age-related osteoporosis without current pathological fracture; Z87.891 Personal history of nicotine dependence ==

== ENCOUNTER → 2019-09-24 | Outpatient (CLI) | payer OTHER, SELFPAY | LOC: M.WC 05:04 | PROVIDERS: ATTEND Family Medicine | DX: I83.028 Varicose veins of left lower extremity with ulcer other part of lower leg (principal); L97.821 Non-pressure chronic ulcer of other part of left lower leg limited to breakdown of skin; L03.116 Cellulitis of left lower limb; L84 Corns and callosities; I73.89 Other specified peripheral vascular diseases; I10 Essential (primary) hypertension; I48.91 Unspecified atrial fibrillation; M81.0 Age-related osteoporosis without current pathological fracture; Z87.891 Personal history of nicotine dependence ==

== ENCOUNTER → 2019-10-01 | Outpatient (CLI) | payer OTHER, SELFPAY | LOC: M.WC 08:23 | PROVIDERS: ATTEND Family Medicine | DX: I83.028 Varicose veins of left lower extremity with ulcer other part of lower leg (principal); L97.822 Non-pressure chronic ulcer of other part of left lower leg with fat layer exposed; L03.116 Cellulitis of left lower limb; I73.89 Other specified peripheral vascular diseases; I10 Essential (primary) hypertension; I48.91 Unspecified atrial fibrillation; M81.0 Age-related osteoporosis without current pathological fracture; Z87.891 Personal history of nicotine dependence ==

== ENCOUNTER → 2019-10-08 | Outpatient (CLI) | payer OTHER, SELFPAY | LOC: M.WC 05:00 | PROVIDERS: ATTEND Family Medicine | DX: I83.028 Varicose veins of left lower extremity with ulcer other part of lower leg (principal); L97.821 Non-pressure chronic ulcer of other part of left lower leg limited to breakdown of skin; L03.116 Cellulitis of left lower limb; I10 Essential (primary) hypertension; I48.91 Unspecified atrial fibrillation; I73.89 Other specified peripheral vascular diseases; M81.0 Age-related osteoporosis without current pathological fracture; Z87.891 Personal history of nicotine dependence ==

== ENCOUNTER → 2019-10-15 | Outpatient (CLI) | payer OTHER, SELFPAY | LOC: M.WC 03:58 | PROVIDERS: ATTEND Family Medicine | DX: I83.023 Varicose veins of left lower extremity with ulcer of ankle (principal); L97.322 Non-pressure chronic ulcer of left ankle with fat layer exposed; L03.116 Cellulitis of left lower limb; I10 Essential (primary) hypertension; I48.91 Unspecified atrial fibrillation; I73.89 Other specified peripheral vascular diseases; M81.0 Age-related osteoporosis without current pathological fracture; Z87.891 Personal history of nicotine dependence ==

== ENCOUNTER → 2019-10-23 | Outpatient (CLI) | payer OTHER, SELFPAY | LOC: M.WC 10-22 11:00 | PROVIDERS: ATTEND Family Medicine | DX: I87.312 Chronic venous hypertension (idiopathic) with ulcer of left lower extremity (principal); E11.622 Type 2 diabetes mellitus with other skin ulcer; L97.321 Non-pressure chronic ulcer of left ankle limited to breakdown of skin; L03.116 Cellulitis of left lower limb; E11.51 Type 2 diabetes mellitus with diabetic peripheral angiopathy without gangrene; H35.30 Unspecified macular degeneration; I48.91 Unspecified atrial fibrillation; M81.0 Age-related osteoporosis without current pathological fracture; Z87.891 Personal history of nicotine dependence ==